=== PATIENT | male | born 1970 | race Caucasian/White ===

== ENCOUNTER 2024-05-13 15:25 | Emergency (ER) | payer MEDICARE, OTHER ==
[2024-05-13] MEDS: Sodium Chloride 0.9% 10 ML Syringe FLUSH PRN (15:38)
[2024-05-13] MEDS: Sodium Chloride 0.9% 2.5 ML Syringe FLUSH PRN (15:39)
[2024-05-13 15:43] LABS: BASOPHILS ABSOLUTE AUTO 0.04 K/uL (0.00-0.20); BASOPHILS PERCENT AUTO 0.6 % (0.0-1.0); EOSINOPHILS ABSOLUTE AUTO 0.23 K/uL (0.00-0.45); EOSINOPHILS PERCENT AUTO 3.7 % (0.0-6.0); HEMOGLOBIN 13.2 g/dL (14.0-18.0); IMMATURE GRAN ABSOLUTE AUTO 0.04 K/uL (0.00-0.05); IMMATURE GRAN PERCENT AUTO 0.6 % (0.0-0.4); LYMPHOCYTES ABSOLUTE AUTO 1.12 K/uL (1.00-4.80); LYMPHOCYTES PERCENT AUTO 18.1 % (24.0-44.0); MEAN CORPUSCULAR HEMOGLOBIN 32.1 pg (28.0-32.0); MEAN CORPUSCULAR HGB CONC 34.7 g/dL (32.0-36.0); MEAN CORPUSCULAR VOLUME 92.5 fL (83.0-99.0); MEAN PLATELET VOLUME 10.4 fL (9.4-12.4); MONOCYTES PERCENT AUTO 11.3 % (0.0-8.0); NEUTROPHILS ABSOLUTE AUTO 4.07 K/uL (1.80-7.70); NEUTROPHILS PERCENT AUTO 65.7 % (41.0-71.0); RED BLOOD CELL COUNT 4.11 M/uL (4.52-5.90)
[2024-05-13 15:53] LABS: INR 1.6 (0.86-1.11); PTT,PARTIAL THROMBOPLSTIN TIME 35.5 SEC (23.9-30.7)
[2024-05-13 15:56] LABS: PLATELET COUNT,PLT 67 K/uL (150-400)
[2024-05-13] MEDS: Acetaminophen 500 MG Tab PO ONE (16:07)
[2024-05-13] MEDS: Lactulose Soln 10 GM/15 ML 15 ML UD Cup PO ONE (16:07)
[2024-05-13 16:09] LABS: A/G RATIO 0.7 (0.9-1.6); ALANINE AMINOTRANSFERASE,ALT 54 IU/L (14-63); ALBUMIN 2.9 g/dL (3.4-5.0); ALKALINE PHOSPHATASE 136 U/L (46-116); ASPARTATE AMNIOTRANSFERASE,AST 87 IU/L (15-37); BILIRUBIN TOTAL 4.4 mg/dL (0.2-1.0); BLOOD UREA NITROGEN,BUN 15 mg/dL (7.0-18.0); CALCIUM 8.8 mg/dL (8.5-10.1); CARBON DIOXIDE,CO2 24.3 mmol/L (21.0-32.0); CHLORIDE,CL 103 mmol/L (98-107); CREATININE 1.3 mg/dL (0.8-1.3); EST CRCL DRUG DOSING (CG) 69.93 mL/min; ETHANOL BLOOD MEDICAL <3 mg/dL; GLUCOSE RANDOM 115 mg/dL (74-106); POTASSIUM,K 4.1 mmol/L (3.5-5.1); PROTEIN TOTAL,TP 6.9 g/dL (6.4-8.2); SODIUM,NA 135 mmol/L (136-148)
[2024-05-13 16:10] LABS: ESTIMATED GFR 65 mL/min (>60)
[2024-05-13] MEDS: Diphtheria,Pertussis(Acell),Tetanus Vaccine 0.5 ML Syringe IM ONE (16:13)
[2024-05-13 17:13] VITALS: BP 128/78; PULSE 98
== END 2024-05-13 16:54 | disposition home or self-care (01) ==
LOC: MW.ED 15:25
DX: S61.402A Unspecified open wound of left hand, initial encounter (principal); Z79.899 Other long term (current) drug therapy; Z75.8 Other problems related to medical facilities and other health care; V43.53XA Car driver injured in collision with pick-up truck in traffic accident, initial encounter; Y92.410 Unspecified street and highway as the place of occurrence of the external cause
CPT/HCPCS: 36415; 70450; 70450-26; 71045; 71045-26; 72125; 72125-26; 72170; 72170-26; 73130-26-LT; 73130-LT; 80053; 80307; 82140; 85025; 85610; 85730; 99284; A9270-GY; J3490

== ENCOUNTER 2025-06-03 17:46 | Emergency (ER) | payer MEDICARE ==
[2025-06-03] MEDS ORDERED: Sodium Chloride 0.9% 10 ML Syringe FLUSH PRN (17:56)
[2025-06-03] MEDS ORDERED: Sodium Chloride 0.9% 2.5 ML Syringe FLUSH PRN (17:56)
[2025-06-03 18:14] LABS: BASOPHILS ABSOLUTE AUTO 0.10 K/uL (0.00-0.20); BASOPHILS PERCENT AUTO 1.2 % (0.0-1.0); EOSINOPHILS ABSOLUTE AUTO 0.21 K/uL (0.00-0.45); EOSINOPHILS PERCENT AUTO 2.5 % (0.0-6.0); IMMATURE GRAN ABSOLUTE AUTO 0.05 K/uL (0.00-0.05); IMMATURE GRAN PERCENT AUTO 0.6 % (0.0-0.4); LYMPHOCYTES ABSOLUTE AUTO 2.32 K/uL (1.00-4.80); LYMPHOCYTES PERCENT AUTO 27.2 % (24.0-44.0); MEAN PLATELET VOLUME 9.5 fL (9.4-12.4); MONOCYTES ABSOLUTE AUTO 1.01 K/uL (0.00-0.80); MONOCYTES PERCENT AUTO 11.8 % (0.0-8.0); NEUTROPHILS ABSOLUTE AUTO 4.85 K/uL (1.80-7.70); NEUTROPHILS PERCENT AUTO 56.7 % (41.0-71.0); NRBC ABSOLUTE 0.00 K/uL (0.00-0.02); NRBC PERCENT 0.0 /100WBC (0.0-0.2); PLATELET COUNT,PLT 68 K/uL (150-400); RED BLOOD CELL COUNT 4.22 M/uL (4.52-5.90); WHITE BLOOD CELL COUNT,WBC 8.54 K/uL (3.9-11.3)
[2025-06-03 18:37] LABS: A/G RATIO 0.8 (0.9-1.6); ALANINE AMINOTRANSFERASE,ALT 26.0 IU/L (14-63); ASPARTATE AMNIOTRANSFERASE,AST 54.0 IU/L (15-37); BILIRUBIN TOTAL 4.1 mg/dL (0.2-1.0); BLOOD UREA NITROGEN,BUN 7.0 mg/dL (7.0-18.0); CARBON DIOXIDE,CO2 26.5 mmol/L (21.0-32.0); CHLORIDE,CL 99.0 mmol/L (98-107); CREATININE 1.0 mg/dL (0.8-1.3); EST CRCL DRUG DOSING (CG) 86.92 mL/min; ETHANOL BLOOD MEDICAL 297.0 mg/dL; GLUCOSE RANDOM 122.0 mg/dL (74-106); POTASSIUM,K 4.5 mmol/L (3.5-5.1); PROTEIN TOTAL,TP 6.4 g/dL (6.4-8.2); SODIUM,NA 131.0 mmol/L (136-148)
[2025-06-03 18:42] LABS: ESTIMATED GFR 88.0 mL/min (>60)
[2025-06-03 20:47] VITALS: BP 93/58; PULSE 80
== END 2025-06-03 20:47 | disposition home or self-care (01) ==
LOC: MW.ED 17:46
DX: S62.605A Fracture of unspecified phalanx of left ring finger, initial encounter for closed fracture (principal); S00.01XA Abrasion of scalp, initial encounter; F10.129 Alcohol abuse with intoxication, unspecified; Z75.3 Unavailability and inaccessibility of health-care facilities; Z88.8 Allergy status to other drugs, medicaments and biological substances; Z79.899 Other long term (current) drug therapy; W22.8XXA Striking against or struck by other objects, initial encounter; Y90.8 Blood alcohol level of 240 mg/100 ml or more
CPT/HCPCS: 36415; 70450; 72125; 73130; 80053; 80307; 85025; 96360; 96361; 99284; J7030; 99283